=== PATIENT | male | born 1930 | race Caucasian/White ===

== ENCOUNTER → 2018-05-05 11:02 | Outpatient (CLI) | payer MEDICARE, OTHER ==
[~2018-05-05] VITALS: Ht 175.3 cm; Wt 76.4 kg
--- NOTE | ~2018-05-05 | HEMODYNAMI ---
PATIENT:CHARLIE BARNETT MEDICAL RECORD: [id number] : [birth year] LOCATION:[facility] ADMISSION DATE: 05/05/18 Generatedon:05/05/201813:49 Patient name: CHARLIE BARNETT Patient #: [id number] SSN: D OB: 1930 Date of study: 05/05/2018 Page: Of Hemodynamic Procedure Report Patient Data Patient Demographics Procedure consent was obtained First Name: CHARLIE Gender: Male Last Name: ANIBAL : 1930 Patient #: [id number] Age: 87 year(s) Race: Unknown Additional ID: [id number] Contact details Address: [address] [place] [address] State: [place] City: [facility] Zip code: [address] Admission Admission Data Admission Date: 05/05/2018 Admission Time: 11:02 Procedure Procedure Types Cath Procedure Peripheral Cath Diagnostic Procedure Thread Clipper Peripheral Procedures Toevs-Mtrnlny-Jpp-Off Procedure Description Procedure Date Procedure Date: 05/05/2018 Procedure Start Time: 13:35 Procedure End Time: 13:46 Procedure Staff Name Function Mike Mendoza MD Performing Physician Clementine Neri RT Monitor Sherley Napier RT Scrub Erna Cowan RN Nurse Procedure Data Cath Procedure Fluoroscopy Diagnostic fluoroscopy Total fluoroscopy Time: 1.2 time: 1.2 min min Diagnostic fluoroscopy Total fluoroscopy dose: 96 dose: 96 mGy mGy Contrast Material Contrast Material Type Amount (ml) Isovue 300 47 Entry Location Entry Primary Successful Side Size Upsize Upsize Entry Closure Succes sful Closure Location (Fr) 1 (Fr) 2 (Fr) Remarks Device Remarks Femoral Right 5 Fr Exoseal artery Estimated blood loss: 5 ml Diagnostic catheters Device Type Used For End Catheter Placement DIAGNOSTIC UF 5Fr Multi-vessel catheter ([id number]) Angiography Procedure Complications No complications Procedure Medications Medication Administration Route Dosage 0.9% NaCl I.V. 100 ml/hr Oxygen etCO2 Nasal cannula 2 l/min Lidocaine 2% added to field 20 Heparin Flush Bag added to field 2 bags (1000units/500ml NS) Versed I.V. 2 mg Fentanyl I.V. 50 mcg Versed I.V. 2 mg Hemodynamics Rest Heart Rate: 61 (bpm) Snapshots Pre Cath Intra NCS Post Cath Vital Signs Time Heart Resp SPO2 etCO2 NIBP (mmHg) Rhythm Pain Sedation Rate (ipm) (%) (mmHg) Status Level (bpm) 13:29:10 58 10 98 19.7 168/116(142) NSR 0 (11) 10(A) , No pain 13:33:49 60 16 97 26 173/73(129) NSR 0 (11) 10(A) , No pain 13:38:23 60 16 98 32 168/78(122) NSR 0 (11) 9(A) , No pain 13:42:54 60 14 98 18 157/76(118) NSR 0 (11) 9(A) , No pain 13:47:30 60 15 97 20.4 166/78(92) NSR 0 (11) 10(A) , No pain Medications Time Medication Route Dose Verified Delivered Reason Notes Eff ectiveness by by 13:22:48 0.9% NaCl I.V. 100 Mike Erna used for ml/hr Reji Cowan feedmobile driver 13:22:56 Oxygen etCO2 2 Mike Erna used for Nasal l/min Reji Cowan procedure cannula RN 13:23:01 Lidocaine 2% added 20ml Mike Mike for local to vial Reji Mendoza MD anesthetic field 13:23:07 Heparin Flush added 2 Mike Mike used for Bag to bags Reji Mendoza MD procedure (1000units/500ml field NS) 13:35:47 Versed I.V. 2 mg Mike Erna for Reji Cowan sedation RN 13:35:53 Fentanyl I.V. 50 Mike Erna for mcg Reji Cowan sedation RN 13:41:21 Versed I.V. 2 mg Mike Erna for Reji Cowan sedation claim taker Log Time Note 13:08:23 Informed consent obtained and on chart 13:08:38 Diagnostic Cath Status : Elective 13:09:08 Erna Cowan RN sent for patient. Start room use. 13:09:09 Time tracking: Regular hours (M-F 7:00 - 5:00) 13:09:13 Plan of Care:Hemodynamics will remain stable., Cardiac rhythm will remain stable., Comfort level will be maintained., Respiratory function will remain adequate., Patient/ family verbilizes understanding of procedure., Procedure tolerated without complication., Recovers from procedure without complications.. 13:15:27 Patient received from Pre/Post Procedure Room to CCL 1 Alert and oriented. Tansferred to table in Supine position. 13:15:28 Warm blankets applied, and noris hugger turned on for patient comfort. 13:15:29 Correct patient and procedure confirmed by team. 13:15:30 ECG and BP/O2 sat monitors applied to patient. 13:21:52 Vital chart was started 13:22:48 0.9% NaCl 100 ml/hr I.V. was administered by Erna Cowan RN; used for procedure; 13:22:56 Oxygen 2 l/min etCO2 Nasal cannula was administered by Erna Cowan RN; used for procedure; 13:23:01 Lidocaine 2% 20ml vial added to field was administered by Mike Mendoza MD; for local anesthetic; 13:23:07 Heparin Flush Bag (1000units/500ml NS) 2 bags added to field was administered by Mike Mendoza MD; used for procedure; 13:27:11 Baseline sample Acquired. 13:27:17 Rhythm: sinus rhythm 13:27:19 Full Disclosure recording started 13:27:23 H&P Date Dictated: 05/05/2018 Within 30 days and on chart., H&P Addendum completed by physician on day of procedure. (MUST COMPLETE FOR ALL OUTPATIENTS). 13:27:25 Pre-procedure instructions explained to patient. 13:27:26 Pre-op teaching completed and patient verbalized understanding. 13:27:27 Family in waiting room. 13:27:28 Patient NPO since Midnight. 13:27:31 Is the patient allergic to Iodine/contrast media? No. 13:27:32 Was the patient premedicated? No 13:27:34 Is patient on blood thinner?No 13:27:35 Patient diabetic? No. 13:27:40 Previous problem with sedation/anesthesia? No ? 13:27:43 Snore? No 13:27:44 Sleep apnea? No 13:27:45 Deviated septum? No 13:27:46 Opens mouth fully? Yes 13:27:47 Sticks out tongue? Yes 13:27:49 Airway obstruction? No ? 13:28:02 Dentures? Yes in tight 13:28:06 Pre procedure: right dorsailis pedis pulse 1+ Palpable, but thready & weak; easily obliterated 13:28:19 Pre procedure: left dorsailis pedis pulse 1+ Palpable, but thready & weak; easily obliterated 13:28:22 Patient pain scale 0/10 ?. 13:28:31 IV patent on arrival in left hand with 0.9% NaCl at [facility]. 13:28:33 Lab results completed and on chart. 13:28:40 Bilateral groins area was prepped with chlora-prep and draped in sterile fashion 13:28:41 Alarms reviewed by R. N. 13:28:41 Sharps counted by scrub and verified by R.N. 13:34:29 Physician arrived 13:34:29 --------ALL STOP TIME OUT------ 13:34:30 Final Timeout: patient, procedure, and site verified with staff and physician. All members of the team are in agreement. 13:34:32 Bilateral groins site verified by team. 13:34:35 Physical assessment completed. ASA score P 2 - A patient with mild systemic disease as per Mike Mendoza MD. 13:34:38 Sedation plan: IV Moderate Sedation Medication:Versed, Fentanyl 13:34:48 Use device set CATH PACK 13:34:50 ACIST Syringe (32411) opened to sterile field. 13:34:50 ACIST Hand Control (23770) opened to sterile field. 13:34:51 ACIST Manifold (82811) opened to sterile field. 13:34:51 Medline Cath Pack ([id number]) opened to sterile field. 13:34:52 Bag Decanter (2002) opened to sterile field. 13:34:52 DIAGNOSTIC WIRE .035 260cm J wire (152382) opened to sterile field. 13:35:01 SHEATH 5FR Shobonier (JQT224) opened to sterile field. 13:35:10 Procedure started. 13:35:13 Local anesthetic to right femoral artery with Lidocaine 2% by Mike Mendoza MD.INITIAL ACCESS ONLY 13:35:28 A 5 Fr sheath was inserted into the Right Femoral artery 13:35:47 Versed 2 mg I.V. was administered by Erna Cowan RN; for sedation; 13:35:53 Fentanyl 50 mcg I.V. was administered by Erna Cowan RN; for sedation; 13:36:35 A DIAGNOSTIC UF 5Fr catheter ([id number]) was advanced over the wire and used for Multi-vessel Angiography. 13:38:55 Abdominal angiogram w/ runoff was performed. 13:41:21 Versed 2 mg I.V. was administered by Erna Cowan RN; for sedation; 13:44:13 Catheter removed. 13:44:21 EXOSEAL 5Fr (EX500) opened to sterile field. 13:44:34 Sheath removed intact; hemostasis achieved with Exoseal to the Right Femoral artery. 13:44:36 Procedure ended.(Physican Out) 13:44:54 Fluoroscopy time 01.20 minutes. 13:45:06 Fluoroscopy dose: 96 mGy 13:45:06 Flurop Dose total: 96 13:45:40 Contrast amount:Isovue 300 47ml. 13:45:42 Sharps counted by scrub and verified by R.N. 13:45:44 Insertion/operative site no bleeding no hematoma. 13:45:53 Post-op/insertion site Right Femoral artery dressed using a 4 x 4 and Tegaderm. 13:45:56 Post procedure rhythm: unchanged. 13:45:59 Estimated blood loss: 5 ml 13:46:01 Post procedure instruction explained to patient.Patient verbalizes understanding. 13:46:01 Patient needs reinforcement of post procedure teaching. 13:46:08 Procedure and supply charges have been captured, reviewed, submitted and are correct. 13:46:12 Procedure Complication : No complications 13:46:15 Vital chart was stopped 13:46:16 See physician's report for complete and final results. 13:46:20 Report given to Pre/Post Procedure Room. 13:46:22 Patient transfered to Pre/Post Procedure Room with Stretcher. 13:46:25 Procedure ended. 13:46:25 Full Disclosure recording stopped 13:46:28 End room use (Document Last) Device Usage Item Name Manufacture Quantity Catalog Hospital Part Current Minimal L ot# / Number Charge Number Stock Stock Serial# Code ACIST Acist 1 [id number] 049136 592184 20 SoFits.Me (69948) Systems Inc ACIST Hand Acist 1 17016 235168 224658 248447 5 Control Medical (03260) Systems Inc ACIST Acist 1 28935 999550 771368 577913 5 Manifold Medical (57901) Systems Inc Medline Medline 1 [id number] 344721 13722 506881 5 Cath Pack ([id number]) Bag Microtek 1 2002S 770157 76325 200008 5 Decanter Medical Inc. (2001S) DIAGNOSTIC St Mor 1 424298 807863 398961 962127 30 WIRE .035 260cm J wire (962340) SHEATH 5FR Terumo 1 OGJ188 119450 865954 863553 5 Shobonier (YAV481) DIAGNOSTIC Cardinal 1 [id number] 190649 786046 467720 10 UF 5Fr Health catheter ([id number]) EXOSEAL 5Fr Cardinal 1 EX500 034681 242203 812714 10 (EX500) Health Signature Audit [place] Stage Time Signature Unsigned Intra-Procedure 05/05/2018 Clementine Neri 1:49:19 PM RT(R) Signatures Monitor : Clementine Neri RT Signature : Date : Time : [facility] [address] [place] [address]
[~2018-05-05 11:02] MED LIST: AGGRENOX 200/251 CAP PO; AXIRON30 MG/1.5 TP; BAYER CHEWABLE81 MG PO; BYSTOLIC10 MG PO; COZAAR100 MG PO; CYANOCOBALAMIN 1,000 IM; NORVASC5 MG PO; PLAVIX75 MG PO; VITAMIN B-121000 MCG IM
[2018-05-05 11:55] VITALS: BP 195/88; Ht 175.3 cm; Wt 76.4 kg
[2018-05-05 12:20] LABS: BASOPHILS 0.2 % (0-2); EOSINOPHILS 2.4 % (0-7); HEMATOCRIT 51.7 % (42.0-54.0); HEMOGLOBIN 17.7 g/dL (13.5-17.5); IMMATURE GRANULOCYTES 0.3 % (0-5); MCH 31.8 pg (26.0-34.0); MCHC 34.2 g/dL (31.0-37.0); MCV 92.8 fL (80.0-100.0); MEAN PLATELET VOLUME 10.3 fL (7.4-10.4); NEUTROPHILS 69.1 % (40-80); PLATELET COUNT 195 10x3/uL (130-400); RBC 5.57 10x6/uL (4.20-6.10); RDW 13.7 % (11.5-14.5); WBC 8.9 10x3/uL (4.8-10.8)
[2018-05-05 12:32] LABS: ANION GAP 12.4 mmol/L (8-16); CALCIUM 9.2 mg/dL (8.5-10.1); CARBON DIOXIDE 27.2 mmol/L (21.0-32.0); CREATININE - SERUM 2.3 mg/dL (0.6-1.3); POTASSIUM - SERUM 4.6 mmol/L (3.5-5.1)
--- NOTE | 2018-05-05 14:21 | NUR ---
CALLED [facility] TO TELL THEM THE PT WILL BE READY FOR [facility] [facility] AT 1600
--- NOTE | 2018-05-05 14:32 | NUR ---
PT. ALERT AND ORIENTED. VSS. DENIES PAIN. RIGHT GROIN C/D/I. NO BLEEDING. NO HEMATOMA. LEFT PIV C/D/I.
--- NOTE | 2018-05-05 15:00 | NUR ---
AWAKE AND ORIENTED. VSS. RIGHT GROIN C/D/I. NO CO PAIN. DENIES N/V.
--- NOTE | 2018-05-05 15:42 | NUR ---
SITTING PT UP. TOLERATING A SANDWICH. NO N/V. RIGHT GROIN C/D/I. VSS
--- NOTE | 2018-05-05 16:00 | NUR ---
REVIEWED DC INSTRUCTIONS WITH PT. QUESTIONS ANSWERED. RIGHT GROIN C/D/I. PIV REMOVED
--- NOTE | 2018-05-05 16:16 | NUR ---
PT. DISCHARGED IN TO CAB
== END | disposition home or self-care (01) ==
LOC: D.CATH 11:02
PROVIDERS: Internal Medicine Cardiovascular Disease
DX: I70.213 Atherosclerosis of native arteries of extremities with intermittent claudication, bilateral legs (principal)

== ENCOUNTER → 2018-05-06 09:46 | Outpatient (CLI) | payer MEDICARE, OTHER ==
[2018-05-05 11:55] VITALS: BMI 24.8
== END | disposition home or self-care (01) ==
LOC: D.US 09:46
DX: I12.9 Hypertensive chronic kidney disease with stage 1 through stage 4 chronic kidney disease, or unspecified chronic kidney disease (principal); N18.3 Chronic kidney disease, stage 3 (moderate); I70.90 Unspecified atherosclerosis; Z68.24 Body mass index [BMI] 24.0-24.9, adult

== ENCOUNTER → 2018-05-12 17:24 | Outpatient (CLI) | payer MEDICARE, OTHER ==
[2018-05-05 11:55] VITALS: BMI 24.8
[2018-05-12 18:55] LABS: ANION GAP 15.9 mmol/L (8-16); CALCIUM 8.9 mg/dL (8.5-10.1); CARBON DIOXIDE 26.2 mmol/L (21.0-32.0); CREATININE - SERUM 2.1 mg/dL (0.6-1.3); POTASSIUM - SERUM 5.1 mmol/L (3.5-5.1)
== END | disposition home or self-care (01) ==
LOC: D.LABREF 17:24
PROVIDERS: Nurse Practitioner Adult Health
DX: R74.8 Abnormal levels of other serum enzymes (principal)

== ENCOUNTER 2018-05-13 10:39 | Outpatient (CLI) | payer MEDICARE, OTHER ==
[~2018-05-13] VITALS: Ht 175.3 cm; Wt 76.4 kg
--- NOTE | ~2018-05-13 | HEMODYNAMI ---
PATIENT:CHARLIE BARNETT MEDICAL RECORD: [id number] : [birth year] LOCATION:[facility] ADMISSION DATE: 05/13/18 Generatedon:05/13/201815:48 Patient name: CHARLIE BARNETT Patient #: [id number] SSN: D OB: 1930 Date of study: 05/13/2018 Page: Of Hemodynamic Procedure Report Patient Data Patient Demographics Procedure consent was obtained First Name: CHARLIE Gender: Male Last Name: ANIBAL : 1930 Patient #: [id number] Age: 87 year(s) Race: Unknown Additional ID: [id number] Contact details Address: [address] [place] [address] State: [place] City: [facility] Zip code: [address] Past Medical History Allergies: No known allergies Admission Admission Data Admission Date: 05/13/2018 Admission Time: 10:39 Height (in.): 69 BSA: 1.94 (m2) Height (cm.): 175.26 BMI: 25.4 (kg/m2) Weight (lbs.): 172 Weight (kg.): 78.02 Lab Results Lab Result Date: 05/13/2018 Lab Result Time: 0:00 Biochemistry Name Units Result Min Max BUN mg/dl 31 --(----)-* 7 18 Creatinine mg/dl 2.2 --(----)-* 0.6 1.3 CBC Name Units Result Min Max Hemoglobin g/dl 17.5 --(---*)-- 13.5 17.5 Procedure Procedure Types Cath Procedure Diagnostic Procedure Sedation Charges Moderate Sedation up to 45 minutes Peripheral vascular Intervention Atherectomy Atherectomy Fem/Pop w/Plasty Stent Stent Iliac w/plasty Initial Procedure Description Procedure Date Procedure Date: 05/13/2018 Procedure Start Time: 14:29 Procedure End Time: 15:45 Procedure Staff Name Function Mike Mendoza MD Performing Physician Sherley Napier RT Monitor Wes Olivarez RT Scrub Erna Chapo RN Nurse Procedure Data Cath Procedure Fluoroscopy Diagnostic fluoroscopy Total fluoroscopy Time: time: 23.5 min 23.5 min Diagnostic fluoroscopy Total fluoroscopy dose: 373 dose: 373 mGy mGy Contrast Material Contrast Material Type Amount (ml) Isovue 300 76 Entry Location Entry Primary Successful Side Size Upsize Upsize Entry Closure Succes sful Closure Location (Fr) 1 (Fr) 2 (Fr) Remarks Device Remarks Femoral Left 6 Fr 6 Fr Exoseal artery Short Long Estimated blood loss: 10 ml Diagnostic catheters Device Type Used For End Catheter Placement DIAGNOSTIC IMT 5Fr Procedure Catheter ([id number]) Procedure Complications No complications Procedure Medications Medication Administration Route Dosage 0.9% NaCl I.V. 100 ml/hr Oxygen etCO2 Nasal cannula 2 l/min Lidocaine 2% added to field 20 Heparin Flush Bag added to field 2 bags (1000units/500ml NS) Versed I.V. 2 mg Fentanyl I.V. 50 mcg Versed I.V. 1 mg Fentanyl I.V. 25 mcg Heparin Bolus I.V. 7600 units Versed I.V. 1 mg Fentanyl I.V. 25 mcg Versed I.V. 1 mg Fentanyl I.V. 25 mcg Versed I.V. 1 mg Heparin Bolus I.V. 3000 units Plavix P.O. 600 mg Hemodynamics Rest BSA: 1.94 (m2) O2 Consumption: Estimated: 207.97 (ml/min) O2 Consumption indexed : Estimated:107.2 (ml/min/m) Heart Rate: 54 (bpm) Snapshots Pre Cath Intra NCS Post Cath Vital Signs Time Heart Resp SPO2 etCO2 NIBP (mmHg) Rhythm Pain Sedation Rate (ipm) (%) (mmHg) Status Level (bpm) 14:16:30 55 12 95 20.9 176/97(156) NSR 0 (11) 10(A) , No pain 14:20:53 54 16 100 24.6 189/85(161) NSR 0 (11) 10(A) , No pain 14:26:08 55 13 98 25 190/89(134) NSR 0 (11) 10(A) , No pain 14:30:34 53 17 97 25 176/81(153) NSR 0 (11) 10(A) , No pain 14:34:56 54 15 97 26 193/94(140) NSR 0 (11) 9(A) , No pain 14:39:29 53 14 97 24.6 155/77(125) NSR 0 (11) 9(A) , No pain 14:43:49 53 14 97 26.1 163/77(133) NSR 0 (11) 10(A) , No pain 14:48:58 52 13 97 27.6 167/79(129) NSR 0 (11) 9(A) , No pain 14:53:24 52 12 97 28.4 140/67(111) NSR 0 (11) 9(A) , No pain 14:58:32 52 13 97 27.6 141/68(102) NSR 0 (11) 9(A) , No pain 15:02:48 54 13 97 25.3 154/70(122) NSR 0 (11) 10(A) , No pain 15:07:08 53 14 97 29.1 142/72(112) NSR 0 (11) 9(A) , No pain 15:11:24 55 11 98 26.8 151/72(113) NSR 0 (11) 9(A) , No pain 15:15:44 56 11 98 29.1 153/72(118) NSR 0 (11) 9(A) , No pain 15:20:02 59 11 97 28.3 157/78(122) NSR 0 (11) 9(A) , No pain 15:24:22 57 11 98 29.1 159/77(127) NSR 0 (11) 10(A) , No pain 15:28:42 56 11 97 29.1 165/79(122) NSR 0 (11) 9(A) , No pain 15:33:06 56 12 98 25.4 164/76(125) NSR 0 (11) 9(A) , No pain 15:37:31 56 12 98 27.6 161/75(130) NSR 0 (11) 9(A) , No pain 15:41:53 57 12 98 27.6 159/77(130) NSR 0 (11) 10(A) , No pain 15:46:13 56 12 98 25.4 156/80(125) NSR 0 (11) 9(A) , No pain Medications Time Medication Route Dose Verified Delivered Reason Notes Effectiveness by by 14:15:41 0.9% NaCl I.V. 100 Mike Erna used for ml/hr Reji Cowan remote broadcast engineer 14:15:49 Oxygen etCO2 2 Mike Erna used for Nasal l/min Reji Cowan procedure cannula RN 14:15:55 Lidocaine 2% added 20ml Mike Mike for local to vial Reji Mendoza MD anesthetic field 14:15:59 Heparin Flush added 2 Mike Mike used for Bag to bags Reji Mendoza MD procedure (1000units/500ml field NS) 14:28:04 Versed I.V. 2 mg Mike Erna for sedation Reji Cowan RN 14:28:13 Fentanyl I.V. 50 Mike Erna for sedation mcg Reji Cowan RN 14:32:32 Versed I.V. 1 mg Mike Erna for sedation Reji Cowan RN 14:32:36 Fentanyl I.V. 25 Mike Erna for sedation mcg Reji Cowan RN 14:48:00 Heparin Bolus I.V. 7600 Mike Erna for verif ied units Reji Cowan anticoagulation with Dr. RENEE Mendoza 14:48:16 Versed I.V. 1 mg Mike Erna for sedation verif ied Reji Cowan with Dr. RENEE Mendoza 14:48:20 Fentanyl I.V. 25 Mike Erna for sedation verif ied mcg Reji Cowan with Dr. RENEE Mendoza 15:03:09 Versed I.V. 1 mg Mike Erna for sedation Reji Cowan RN 15:03:12 Fentanyl I.V. 25 Mike Erna for sedation mcg Reji Cowan RN 15:28:03 Versed I.V. 1 mg Mike Erna for sedation Reji Cowan RN 15:36:23 Heparin Bolus I.V. 3000 Mike Erna for Verif ied units Reji Cowan anticoagulation with dr RENEE mendoza 15:44:46 Plavix P.O. 600 Mike Erna for mg Reji Cowan antiplatelet RN therapy Procedure Log Time Note 13:50:42 Signed procedure consent form obtained from patient. 13:50:44 Diagnostic Cath status Elective 13:50:53 H&P Date Dictated: 05/12/2018 Within 30 days and on chart., H&P Addendum completed by physician on day of procedure. (MUST COMPLETE FOR ALL OUTPATIENTS). 13:51:01 Patient Height : 69 inches 13:51:05 Patient Weight : 172 lbs 13:52:14 Patient allergic to No known allergies 13:58:34 Lab Result : Creatinine 2.2 mg/dl 13:58:34 Lab Result : BUN 31 mg/dl 13:58:34 Lab Result : Hemoglobin 17.5 g/dl 13:59:02 Wes ALANIZ(R) sent for patient. Start room use. 13:59:03 Time tracking: Regular hours (M-F 7:00 - 5:00) 13:59:07 Plan of Care:Hemodynamics will remain stable., Cardiac rhythm will remain stable., Comfort level will be maintained., Respiratory function will remain adequate., Patient/ family verbilizes understanding of procedure., Procedure tolerated without complication., Recovers from procedure without complications.. 14:07:10 Patient received from Pre/Post Procedure Room to CCL 1 Alert and oriented. Tansferred to table in Supine position. 14:07:11 Warm blankets applied, and noris hugger turned on for patient comfort. 14:07:11 Correct patient and procedure confirmed by team. 14:07:12 ECG and BP/O2 sat monitors applied to patient. 14:15:18 Vital chart was started 14:15:41 0.9% NaCl 100 ml/hr I.V. was administered by Erna Cowan RN; used for procedure; 14:15:49 Oxygen 2 l/min etCO2 Nasal cannula was administered by Erna Cowan RN; used for procedure; 14:15:55 Lidocaine 2% 20ml vial added to field was administered by Mike Mendoza MD; for local anesthetic; 14:15:59 Heparin Flush Bag (1000units/500ml NS) 2 bags added to field was administered by Mike Mendoza MD; used for procedure; 14:17:37 Baseline sample Acquired. 14:17:42 Rhythm: sinus bradycardia 14:17:43 Full Disclosure recording started 14:17:44 Pre-procedure instructions explained to patient. 14:17:44 Pre-op teaching completed and patient verbalized understanding. 14:17:45 Family in patients room. 14:17:47 Patient NPO since Midnight. 14:17:52 Is patient on blood thinner?No 14:17:53 Patient diabetic? No. 14:17:56 Previous problem with sedation/anesthesia? No ? 14:17:56 Snore? Yes 14:17:57 Sleep apnea? No 14:17:59 Deviated septum? No 14:18:00 Opens mouth fully? Yes 14:18:01 Sticks out tongue? Yes 14:18:02 Airway obstruction? No ? 14:18:05 Dentures? Yes IN 14:18:12 Pre procedure: left dorsailis pedis pulse 1+ Palpable, but thready & weak; easily obliterated 14:18:28 Patient pain scale 0/10 ?. 14:19:03 IV patent on arrival in left hand with 0.9% NaCl at [facility]. 14:19:07 Lab results completed and on chart. 14:19:10 Left groin area was prepped with chlora-prep and draped in sterile fashion 14:19:11 Alarms reviewed by R. N. 14:19:11 Sharps counted by scrub and verified by R.N. 14:19:19 Use device set CATH PACK 14:19:20 ACIST Syringe (11157) opened to sterile field. 14:19:20 ACIST Hand Control (70025) opened to sterile field. 14:19:20 ACIST Manifold (91045) opened to sterile field. 14:19:21 Medline Cath Pack ([id number]) opened to sterile field. 14:19:21 Bag Decanter (2002S) opened to sterile field. 14:19:22 DIAGNOSTIC WIRE .035 260cm J wire (292022) opened to sterile field. 14:24:30 SHEATH 6FR Destination (RSR01) opened to sterile field. 14:24:31 GLIDE WIRE Super Stiff Angled 260cm (LR5158) opened to sterile field. 14:24:31 SHEATH 6FR [place] (GVF823) opened to sterile field. 14:24:32 INFLATOR Merit BasixCompak (PM1572) opened to sterile field. 14:27:26 --------ALL STOP TIME OUT------ 14:27:26 Final Timeout: patient, procedure, and site verified with staff and physician. All members of the team are in agreement. 14:27:28 Left groin site verified by team. 14:27:31 Physical assessment completed. ASA score P 2 - A patient with mild systemic disease as per Mike Mendoza MD. 14::34 Sedation plan: IV Moderate Sedation Medication:Versed, Fentanyl 14:28:04 Versed 2 mg I.V. was administered by Erna Cowan RN; for sedation; 14:28:13 Fentanyl 50 mcg I.V. was administered by Erna Cowan RN; for sedation; 14:29:22 Procedure started. 14:29:54 Local anesthetic to left femerol artery with Lidocaine 2% by Mike Mendoza MD.INITIAL ACCESS ONLY 14:32:32 Versed 1 mg I.V. was administered by Erna Cowan RN; for sedation; 14:32:36 Fentanyl 25 mcg I.V. was administered by Erna Cowan RN; for sedation; 14:33:20 A 6 Fr Short sheath was inserted into the Left Femoral artery 14:33:49 A DIAGNOSTIC IMT 5Fr Catheter ([id number]) was advanced over the wire and used for Procedure. 14:34:29 STIFF GLIDE ADVANCED WITH IMT AROUND THE HORN 14:36:31 MAGIC TORQUE 180cm 0.035 wire ([id number]) opened to sterile field. 14:39:26 Catheter exchanged over wire. 14:39:41 SHORT SHEATH EXCHANGED FOR LONG DESTINATION 14:39:50 Sheath upsized to a 6 Fr Long. 14:41:24 GLIDE WIRE REMOVED 14:44:53 WHISPER 300cm guide wire ([id number]) opened to sterile field. 14:46:46 WHIPSER 300 wire advanced. 14:46:47 Wire advanced across lesion. 14:48:00 Heparin Bolus 7600 units I.V. was administered by Erna Cowan RN; for anticoagulation; verified with Dr. Mendoza 14:48:16 Versed 1 mg I.V. was administered by Erna Cowan RN; for sedation; verified with Dr. Mendoza 14:48:20 Fentanyl 25 mcg I.V. was administered by Erna Cowan RN; for sedation; verified with Dr. Mendoza 14:49:26 DIAMONDBACK VIPER .014 335 CM wire ([id number]) opened to sterile field. 14:49:57 BALLOON ADVANCED TO EXCHANGE WHISPER WIRE FOR VIPER WIRE 14:52:12 The SABER 5.0 X 150 X 150 balloon ([id number]) was advanced and then removed because in body, not inflated 14:55:43 DIAMONDBACK 360 1.50 SOLID Atherectomy catheter ([id number]) opened to sterile field. 14:59:13 Diamondback atherectomy performed on Right Common Femoral and SFA 15:03:09 Versed 1 mg I.V. was administered by Erna Cowan RN; for sedation; 15:03:12 Fentanyl 25 mcg I.V. was administered by Erna Cowan RN; for sedation; 15:19:05 Diamondback catheter removed. 15:22:58 Inflate balloon Inflation number: 1 A SABER 5.0 X 150 X 150 balloon ([id number]) was prepped and advanced across the Proximal Superficial Femoral, Right, then inflated to 7 ESTRELLA for 1:07 (min:sec). 15:25:29 Inflation number: 2 The SABER 5.0 X 150 X 150 balloon ([id number]) was reinflated across the Proximal Superficial Femoral, Right, to 7 ESTRELLA for 0:43 (min:sec). 15:27:34 Inflation number: 3 The SABER 5.0 X 150 X 150 balloon ([id number]) was reinflated across the Proximal Superficial Femoral, Right, to 8 ESTRELLA for 0:37 (min:sec). 15:28:03 Versed 1 mg I.V. was administered by Erna Cowan RN; for sedation; 15:28:09 Balloon removed over the wire. 15:31:10 VIPER WIRE REMOVED 15:31:48 JWIRE ADVNACED TO PULL LONG SHEATH BACK AROUND HORN 15:36:23 Heparin Bolus 3000 units I.V. was administered by Erna Cowan RN; for anticoagulation; Verified with dr mendoza 15:37:56 Place stent Inflation Number: 1 A TUCKER 8 x 39 x 135 stent ([id number]) was prepped and advanced across the Mid Common Iliac, Left. The stent was deployed at 10 ESTRELLA for 0:00 (min:sec). 15:39:21 Stent catheter was removed intact over wire. 15:39:45 LONG SHEATH EXCHANGED FOR SHORT SHEATH 15:40:13 EXOSEAL 6Fr (EX600) opened to sterile field. 15:41:02 Sheath removed intact; hemostasis achieved with Exoseal to the Left Femoral artery. 15:41:06 Procedure ended.(Physican Out) 15:42:08 Fluoroscopy time 23.50 minutes. 15:42:13 Flurop Dose total: 373 15:42:13 Fluoroscopy dose: 373 mGy 15:42:29 Contrast amount:Isovue 300 76ml. 15:42:35 Post-op/insertion site Left Femoral artery dressed using a 4 x 4 and Tegaderm. 15:42:42 Post-procedure physical assessment completed. ASA score P 2 - A patient with mild systemic disease as per Mike Mendoza MD. 15:42:45 Post procedure rhythm: sinus bradycardia 15:42:47 Estimated blood loss: 10 ml 15:42:49 Post procedure instruction explained to patient.Patient verbalizes understanding. 15:42:49 Patient needs reinforcement of post procedure teaching. 15:44:38 Procedure type changed to Cath procedure, Diagnostic procedure, Sedation Charges, Moderate Sedation up to 45 minutes, Peripheral vascular Intervention, Atherectomy, Atherectomy Fem/Pop w/Plasty, Stent, Stent Iliac w/plasty Initial 15:44:46 Plavix 600 mg P.O. was administered by Erna Cowan RN; for antiplatelet therapy; 15:45:18 Procedure and supply charges have been captured, reviewed, submitted and are correct. 15:45:31 Procedure Complication : No complications 15:45:32 Vital chart was stopped 15:45:32 See physician's report for complete and final results. 15:45:34 Report given to Pre/Post Procedure Room. 15:45:36 Patient transfered to Pre/Post Procedure Room with Bed. 15:45:39 Procedure ended. 15:45:39 Full Disclosure recording stopped 15:45:42 End room use (Document Last) Intervention Summary Intervention Notes Time ActionType Lesion and Equipment Action# Pressure Duration Attributes Used 14:52:12 Discard SABER 5.0 X Balloon 150 X 150 balloon ([id number]) 15:22:58 Inflate Proximal SABER 5.0 X 1 7 01:07 balloon Superficial 150 X 150 Femoral, balloon Right ([id number]) 15:25:29 Reinflate Proximal SABER 5.0 X 2 7 00:43 balloon Superficial 150 X 150 Femoral, balloon Right ([id number]) 15:27:34 Reinflate Proximal SABER 5.0 X 3 8 00:37 balloon Superficial 150 X 150 Femoral, balloon Right ([id number]) 15:37:56 Place stent Mid Common TUCKER 8 x 1 10 00:00 Iliac, Left 39 x 135 stent ([id number]) Device Usage Item Name Manufacture Quantity Catalog Number Hospital Part Curr ent Minimal Lot# / Charge Number Stock Stock Serial# Code ACIST Syringe Acist Medical 1 40569 082585 754711 7218 65 20 (71248) Systems Inc ACIST Hand Acist Medical 1 68639 947082 695268 4999 90 5 Control (98549) Systems Inc ACIST Manifold Acist Medical 1 24425 308741 238238 4963 07 5 (66142) Systems Inc Medline Cath Medline 1 [id number] 919964 97540 9896 49 5 Pack ([id number]) Bag Decanter Microtek 1 2001S 942591 16980 9880 53 5 () Medical Inc. DIAGNOSTIC WIRE [facility] 1 653209 066174 454701 8790 42 30 .035 260cm J wire (958522) SHEATH 6FR Terumo 1 RSR01 618778 33755 9996 90 5 Destination (RSR01) GLIDE WIRE Super Terumo 1 GU1877 579191 537766 3752 81 5 Stiff Angled 260cm (UR5933) SHEATH 6FR Terumo 1 IIU277 929545 166209 3791 36 40 [place] (OHM847) INFLATOR [facility] Medical 1 DP5639 991174 717651 4399 08 15 BasixCompak (FC3042) DIAGNOSTIC IMT [place] 1 [id number] 248911 689437 4616 5 5 5Fr Catheter Scientific ([id number]) MAGIC TORQUE [place] 1 [id number] 965246 843742 9940 73 1 180cm 0.035 wire Scientific ([id number]) WHISPER 300cm Petty 1 [id number] 857639 034712 4865 93 5 guide wire Vascular ([id number]) DIAMONDBACK Cardiovascular 1 VPR-[id number] 086781 9988 23 5 VIPER .014 335 systems CM wire (FLHJVHG41) SABER 5.0 X 150 Cardinal 1 [id number] 700047 4103 93 5 X 150 balloon Health ([id number]) DIAMONDBACK 360 Cardiovascular 1 [id number] 302003 1231 93 5 1.50 SOLID systems Atherectomy catheter ([id number]) TUCKER 8 x 39 x Cardinal 1 [id number] 551698 989006 7030 91 5 135 stent Health ([id number]) EXOSEAL 6Fr Cardinal 1 EX600 930787 805203 3624 36 10 (EX600) Health Signature Audit [place] Stage Time Signature Unsigned Intra-Procedure 05/13/2018 Sherley Napier 3:48:22 PM RT(R) Signatures Monitor : Sherley Napier Signature : RT Date : Time : [address] [address]
[~2018-05-13 10:39] MED LIST changes: -BAYER CHEWABLE81 MG PO; -CYANOCOBALAMIN 1,000 IM; -NORVASC5 MG PO; -PLAVIX75 MG PO
[2018-05-13] MEDS ORDERED: NORVASC5 MG PO (11:57)
[2018-05-13] MEDS ORDERED: CYANOCOBALAMIN 1,000 IM (12:00)
[2018-05-13 12:13] VITALS: BP 193/92; Ht 175.3 cm; Wt 76.4 kg
[2018-05-13 12:31] LABS: ANION GAP 13.5 mmol/L (8-16); CALCIUM 8.7 mg/dL (8.5-10.1); CARBON DIOXIDE 25.8 mmol/L (21.0-32.0); CREATININE - SERUM 2.2 mg/dL (0.6-1.3)
[2018-05-13 12:32] LABS: BASOPHILS 0.2 % (0-2); EOSINOPHILS 3.3 % (0-7); HEMATOCRIT 50.3 % (42.0-54.0); HEMOGLOBIN 17.5 g/dL (13.5-17.5); IMMATURE GRANULOCYTES 0.2 % (0-5); LYMPHOCYTES 16.5 % (15-50); MCHC 34.8 g/dL (31.0-37.0); MEAN PLATELET VOLUME 9.9 fL (7.4-10.4); MONOCYTES 13.1 % (2-11); NEUTROPHILS 66.7 % (40-80); PLATELET COUNT 183 10x3/uL (130-400); POTASSIUM - SERUM 4.3 mmol/L (3.5-5.1); RBC 5.47 10x6/uL (4.20-6.10); RDW 13.7 % (11.5-14.5); WBC 8.1 10x3/uL (4.8-10.8)
--- NOTE | 2018-05-13 13:41 | NUR ---
PATIENT NIBP 198/81 ON ARRIVAL, HAD PATIENT TAKE HIS HOME MEDICATION OF 5MG AMLODIPINE WHEN HE STATED THAT HE HAD NOT TAKEN IT THIS MORNING. BLOOD PRESSURE RE-CHECKED AT 204/77. SPOKE WITH PHYSICIAN, RECEIVED ORDER FOR 0.1 MG OF CLONIDINE PO ONCE.
--- NOTE | 2018-05-13 16:10 | NUR ---
RECIEVED TO ROOM VIA STRETCHER FROM MILK RECEIVER WITH 6 FR EXOSEAL L/GROIN CDI NO BLEEDING OR HEMATOMA NOTED. HR 54 BP 196/84. DR PRUITT AT BEDSIDE WITH ORDERS FOR 0.1 OF CLONIDINE PO ORDERS CARRIED OUT
[2018-05-13] MEDS ORDERED: BAYER CHEWABLE81 MG PO (16:14)
[2018-05-13] MEDS ORDERED: PLAVIX75 MG PO (16:14)
--- NOTE | 2018-05-13 16:21 | NUR ---
0.1 MG CLONIDINE GIVEN ORAL WITH WATER FOR ELEVATED BP. 6 FR EXOSEAL L/GROIN REMAINS CDI WITH NO BLEEDING OR HEMATOMA NOTED.
--- NOTE | 2018-05-13 16:45 | NUR ---
RESTING QUIETLY WITH NO DISTRESS. 6 FR EXOSEAL L/GROIN CDI
--- NOTE | 2018-05-13 17:20 | NUR ---
6 FR EXOSEAL L/GROIN CDI NO BLEEDING OR HEMATOMA NOTED. FAMILY PRESENT AT BEDSIDE
--- NOTE | 2018-05-13 17:43 | NUR ---
VERBAL AND WRITTEN DISCHARGE GONE OVER WITH PATIENT AND SON. 6 FR EXOSEAL L/GROIN REMAINS CDI WITH NO BLEEDING NOTED
--- NOTE | 2018-05-13 18:15 | NUR ---
RIGHT GROIN DRESSING IS CDI, NO S/S OF BLEEDING OR HEMATOMA. VSS ON 1L NASAL CANNULA.
--- NOTE | 2018-05-13 18:45 | NUR ---
HEAD OF BED ELEVATED TO 30 DEGREES. LEFT GROIN DRESSING IS CDI,NO S/S OF BLEEDING OR HEMATOMA. VSS ON ROOM AIR. PATIENT EATING TURKEY SANDWICH AND DRINKING WATER.
--- NOTE | 2018-05-13 19:15 | NUR ---
VSS ON ROOM AIR. LEFT GROIN DRESSING IS CDI, NO S/S OF BLEEDING OR HEMATOMA. HEAD OF BED ELEVATED TO 90 DEGREES. IV REMOVED.
--- NOTE | 2018-05-13 19:40 | NUR ---
PATIENT TRANSPORTED VIA WHEELCHAIR TO CAR WITH FAMILY MEMBER DRIVING, ALL BELONGINGS WITH PATIENT.
== END 2018-05-13 19:40 ==
LOC: D.CATH 10:39
PROVIDERS: Internal Medicine Cardiovascular Disease
DX: I70.213 Atherosclerosis of native arteries of extremities with intermittent claudication, bilateral legs (principal)

== ENCOUNTER 2018-07-22 06:40 | Day surgery (SDC) | payer MEDICARE, OTHER ==
[2018-07-21 12:24] LABS: ANION GAP 11.7 mmol/L (8-16); BASOPHILS 0.3 % (0-2); CARBON DIOXIDE 30.3 mmol/L (21.0-32.0); CREATININE - SERUM 2.3 mg/dL (0.6-1.3); EOSINOPHILS 3.2 % (0-7); HEMATOCRIT 50.9 % (42.0-54.0); HEMOGLOBIN 17.6 g/dL (13.5-17.5); IMMATURE GRANULOCYTES 0.3 % (0-5); LYMPHOCYTES 18.8 % (15-50); MCH 31.2 pg (26.0-34.0); MCHC 34.6 g/dL (31.0-37.0); MCV 90.1 fL (80.0-100.0); MEAN PLATELET VOLUME 9.6 fL (7.4-10.4); MONOCYTES 12.5 % (2-11); NEUTROPHILS 64.9 % (40-80); PLATELET COUNT 183 10x3/uL (130-400); RBC 5.65 10x6/uL (4.20-6.10); RDW 13.4 % (11.5-14.5); WBC 9.1 10x3/uL (4.8-10.8)
[2018-07-21 12:38] LABS: APTT 26.6 SECONDS (22.8-39.4); INR 1.03 (0.85-1.17)
[~2018-07-22] VITALS: Ht 175.3 cm; Wt 73.6 kg
[~2018-07-22 06:40] MED LIST changes: +BAYER CHEWABLE81 MG PO; +CYANOCOBALAMIN 1,000 IM; +CYANOCOBALAMIN 1,000 INJ; +HCTZ25 MG PO; +NORVASC5 MG PO; +PLAVIX75 MG PO
[2018-07-22 06:51] VITALS: BP 165/81; Ht 175.3 cm; Wt 73.6 kg
--- NOTE | 2018-07-22 12:47 | OP ---
PATIENT NAME: CHARLIE BARNETT JR MEDICAL RECORD: [id number] :[birth year] LOCATION:[facility] ADMISSION DATE: SURGEON: DAMIAN MORRISON MD DATE OF OPERATION: 07/22/2018 SURGEON: Damian Morrison MD ANESTHESIA: TIVA by Gwyn Martinez CRNA. DIAGNOSIS: Bladder neck contracture, post TURP of the prostate. PROCEDURES: Cystoscopy, incision of bladder neck. FINDINGS: Resected prostate. Bladder neck contracture with less than 17-Ivorian circumference. No bladder tumors were seen and he has single ureteral orifices bilaterally. SPECIMENS: None. BLOOD LOSS: Minimal. CLINICAL HISTORY: This is an 87-year-old male, who has had episodes of urinary retention over the past 2 years. He performs self intermittent catheterization every 5 days to open up a stricture. He had a TURP 5 years ago in [place], [place]. His urologist there recommended that he perform this every-5-day urethral and bladder neck dilation. He comes today to determine what the site of the obstruction is and then try to relieve it. He is not allergic to any medications. 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 DESCRIPTION OF PROCEDURE: The patient was given IV sedation. We first did cystoscopy with a 17-Ivorian cystoscope and a 30-degree lens. He was in lithotomy position and prepped and draped. Going into the urethra, there were no strictures. Prostatic urethra shows signs of previous resection. The bladder neck though was quite tight and in fact the scope could not pass through the bladder neck at all. I passed a Sensor wire through the bladder neck into the bladder. We then returned with an optic urethrotome with a 12-degree lens. Using the cold knife at 12 o'clock position, I made a deep enough incision that the scope would finally pass through. Further incisions were made at the 5 o'clock and 7 o'clock areas of the bladder neck so that the bladder neck was opened up in 3 locations. The optic urethrotome was then removed. We then placed a 16-Ivorian oneida-tip catheter over the guidewire into the bladder. Once the catheter was in the bladder, the balloon was inflated with 10 cc of sterile water. The guidewire was then completely removed. The catheter is put to bag drainage. The catheter will allow the bladder neck to heal up to at least the diameter of the catheter. I will see the patient in followup next week to have the catheter removed. TRANSINT:[id number] Voice Confirmation ID: [id number] DOCUMENT ID: [id number] OPERATIVE REPORT [id number] CHARLIE BARNETT JR, DAMIAN Still MD at 1247 CC: [id number] DICTATION DATE: 07/22/18 1203 MECHANIC AND WELDER: 07/22/18 1228 [id number] [place] [address]
--- NOTE | 2018-07-22 14:43 | NUR ---
1415 DRESSED, AWAKE, & ALERT. GIVEN DISCHARGE INFORMATION INCLUDING: RX"S 2: TYLENOL #3, OXYBUTYNIN, MED REC, RTC APPT., [facility] D/C INSTRUCTIONS, & COMPUTER GENERATED GENAO CARE, URETHROTOMY, & CYSTOSCOPY D/C INSTRUCTIONS. PT & SON VOICED UNDERSTANDING. TO PRIVATE CAR PER WHEELCHAIR BY THIS NURSE. HOME WITH SON, BRUCE. Renee BHANDARI R.N.
== END 2018-07-22 14:15 | disposition home or self-care (01) ==
LOC: D.OPS 06:40 → D.PAN 09:15 → D.OPS 09:30 → D.PAN 10:15 → D.OPS 10:15
PROVIDERS: Anesthesiology; ATTEND Urology
DX: N32.0 Bladder-neck obstruction (principal); R33.9 Retention of urine, unspecified; Z01.812 Encounter for preprocedural laboratory examination

== ENCOUNTER 2018-08-03 14:25 | Inpatient (IN) | payer MEDICARE, OTHER ==
[~2018-08-03] VITALS: Ht 175.3 cm; Wt 73.5 kg
[2018-08-03 15:37] LABS: BASOPHILS 0.2 % (0-2); EOSINOPHILS 0 % (0-7); HEMATOCRIT 44.7 % (42.0-54.0); HEMOGLOBIN 15.4 g/dL (13.5-17.5); IMMATURE GRANULOCYTES 0.2 % (0-5); LYMPHOCYTES 5.2 % (15-50); MCH 30.2 pg (26.0-34.0); MCHC 34.5 g/dL (31.0-37.0); MCV 87.6 fL (80.0-100.0); MEAN PLATELET VOLUME 9.8 fL (7.4-10.4); MONOCYTES 15.6 % (2-11); NEUTROPHILS 78.8 % (40-80); PLATELET COUNT 164 10x3/uL (130-400); RDW 13.9 % (11.5-14.5)
[2018-08-03 15:55] LABS: ALBUMIN 2.8 g/dL (3.4-5.0); ANION GAP 10.7 mmol/L (8-16); BILIRUBIN - TOTAL 2.05 mg/dL (0.2-1.3); CALCIUM 8.6 mg/dL (8.5-10.1); CARBON DIOXIDE 29.4 mmol/L (21.0-32.0); CREATININE - SERUM 2.8 mg/dL (0.6-1.3); POTASSIUM - SERUM 3.1 mmol/L (3.5-5.1); PROTEIN - SERUM 7.3 g/dL (6.4-8.2)
[2018-08-03 16:00] VITALS: BP 154/74
[2018-08-03 17:00] VITALS: BP 169/76
[2018-08-03 17:33] LABS: APPEARANCE HAZY (CLEAR); BILIRUBIN NEGATIVE (NEGATIVE); COLOR YELLOW (YELLOW); GLUCOSE NEGATIVE (NEGATIVE); KETONE NEGATIVE (NEGATIVE); NITRITE POSITIVE (NEGATIVE); PROTEIN 1+ mg/dL (NEGATIVE); SPECIFIC GRAVITY 1.015 (1.005-1.020); UROBILINOGEN NORMAL (NORMAL)
[2018-08-03 17:35] LABS: BACTERIA MANY /hpf (NONE SEEN); RED CELLS - URINE >50 /hpf (0-5); WHITE CELLS - URINE 25-50 /hpf (0-5)
[2018-08-03 18:00] VITALS: BP 167/78
[2018-08-03] MEDS ORDERED: CENTRUM MEN'S1 EACH PO (21:57)
[2018-08-03 22:27] VITALS: BP 137/64; BMI 23.9
[2018-08-04 00:45] VITALS: BP 140/75
[2018-08-04 04:28] VITALS: BP 131/56
[2018-08-04 06:32] LABS: ANION GAP 12.9 mmol/L (8-16); BASOPHILS 0.1 % (0-2); CALCIUM 7.5 mg/dL (8.5-10.1); CARBON DIOXIDE 25.7 mmol/L (21.0-32.0); CREATININE - SERUM 2.2 mg/dL (0.6-1.3); EOSINOPHILS 0.3 % (0-7); HEMATOCRIT 41.5 % (42.0-54.0); HEMOGLOBIN 14.5 g/dL (13.5-17.5); IMMATURE GRANULOCYTES 0.2 % (0-5); LYMPHOCYTES 10.6 % (15-50); MAGNESIUM - SERUM 1.9 mg/dL (1.8-2.4); MCH 30.1 pg (26.0-34.0); MCHC 34.9 g/dL (31.0-37.0); MCV 86.1 fL (80.0-100.0); MEAN PLATELET VOLUME 10.1 fL (7.4-10.4); MONOCYTES 19.6 % (2-11); NEUTROPHILS 69.2 % (40-80); PLATELET COUNT 148 10x3/uL (130-400); RBC 4.82 10x6/uL (4.20-6.10); RDW 14.1 % (11.5-14.5)
[2018-08-04 06:50] LABS: POTASSIUM - SERUM 2.6 mmol/L (3.5-5.1)
[2018-08-04 06:51] LABS: WBC 9.7 10x3/uL (4.8-10.8)
[2018-08-04 09:01] VITALS: BP 146/77
[2018-08-04 12:57] VITALS: BP 112/66
[2018-08-04 15:00] VITALS: Ht 175.3 cm; Wt 73.5 kg
[2018-08-04 16:38] VITALS: BP 139/63
[2018-08-04 20:00] VITALS: BP 168/99
[2018-08-05 04:00] VITALS: BP 122/61
[2018-08-05 05:41] LABS: BASOPHILS 0.1 % (0-2); HEMATOCRIT 39.6 % (42.0-54.0); HEMOGLOBIN 13.5 g/dL (13.5-17.5); IMMATURE GRANULOCYTES 0.4 % (0-5); MCH 29.7 pg (26.0-34.0); MCHC 34.1 g/dL (31.0-37.0); MCV 87.2 fL (80.0-100.0); MEAN PLATELET VOLUME 10.2 fL (7.4-10.4); MONOCYTES 14.1 % (2-11); NEUTROPHILS 66.4 % (40-80); PLATELET COUNT 157 10x3/uL (130-400); RBC 4.54 10x6/uL (4.20-6.10); RDW 14.3 % (11.5-14.5)
[2018-08-05 05:58] LABS: BILIRUBIN - TOTAL 0.59 mg/dL (0.2-1.3); CALCIUM 7.5 mg/dL (8.5-10.1); CARBON DIOXIDE 25.7 mmol/L (21.0-32.0); CREATININE - SERUM 2.1 mg/dL (0.6-1.3)
[2018-08-05 06:02] LABS: ANION GAP 10.3 mmol/L (8-16); PROTEIN - SERUM 5.4 g/dL (6.4-8.2)
[2018-08-05 06:07] LABS: WBC 6.9 10x3/uL (4.8-10.8)
[2018-08-05 09:34] VITALS: BP 146/67
[2018-08-05 13:38] VITALS: BP 149/90
--- NOTE | 2018-08-05 14:11 | MORECARE ---
CASE MANAGEMENT DISCHARGE SUMMARY PATIENT: CHARLIE MENDOZA JR UNIT: [id number] ADM DATE: 08/03/18 AGE: 87 : [birth year] SEX: M ROOM/BED: D.2234 AUTHOR: AIDEN MCCANN PHYSICIAN: REFERRING PHYSICIAN: CONCHITA CANO MD DATE OF SERVICE: 08/05/18 Discharge Plan Patient Name: CHARLIE [facility]END[facility]ZA [facility] [facility] 1930 Planned Disposition: Other Type of Facility Anticipated Discharge Date: Discharge Date: Expected LOS: Initial Reviewer: [email or web address] Initial Review Date: 08/05/2018 Generated: 08/05/18 3:10 pm DCPIA - Discharge Planning Initial Assessment Updated by [email or web address]: Jen Campbell on 08/05/18 2:10 pm * Is the patient Alert and Oriented? Yes * How many steps to enter\exit or inside your home? 0/0 * PCP Dr. Bryant * Pharmacy [facility] * Preadmission Environment [facility] * Facility Name [facility] * ADLs Independent * Equipment Catheter Supplies * List name and contact numbers for known caregivers / representatives who currently or will assist patient after discharge: Saman Mendoza - [facility] - [phone] * Verbal permission to speak to the caregivers and representatives has been obtained from the patient. Yes * Community resources currently utilized None * Additional services required to return to the preadmission environment? No * Can the patient safely return to the preadmission environment? Yes * Has this patient been hospitalized within the prior 30 days at any hospital? No Patient Name: CHARLIE MENDOZA Page [phone] at 1411 All edits/amendments must be made on the electronic document DICTATION DATE: 08/05/181409 AVIAN KEEPER: CLAIRE 08/05/181409 RPT#: [id number] DC DATE: STATUS: ADM IN [facility] [address] [place] [address] END OF REPORT
--- NOTE | 2018-08-05 14:19 | MORECARE ---
CASE MANAGEMENT DISCHARGE SUMMARY PATIENT: CHARLIE MENDOZA JR UNIT: [id number] ADM DATE: 08/03/18 AGE: 87 : [birth year] SEX: M ROOM/BED: D.2234 AUTHOR: RAMYDOC PHYSICIAN: REFERRING PHYSICIAN: CONCHIAT CANO MD DATE OF SERVICE: 08/05/18 Discharge Plan Patient Name: CHARLIE MENDOZA Facility: [facility]:[place] : 1930 Planned Disposition: Other Type of Facility Anticipated Discharge Date: Discharge Date: Expected LOS: Initial Reviewer: [email or web address] Initial Review Date: 08/05/2018 Generated: 08/05/18 3:19 pm Comments DCP- Discharge Planning Updated by [email or web address]: Jen Campbell on 08/05/18 1:[address] Patient Name: CHARLIE MENDOZA Admission Status: ER Accout number: [id number] Admission Date: 08-03-2018 : 1930 Admission Diagnosis: Attending: CONCHITA CNAO Current LOS: 2 Anticipated DC Date: Planned Disposition: Other Type of Facility Primary Insurance: MEDICARE A & B Discharge Planning Comments: CM met with patient to complete initial dc planning assessment. CM educated patient on the CM role and verbal consent given by patient to complete assessment. Patient lives at [facility] alone. At discharge patient plans to return and feels this is a safe discharge. He states the [facility] van will pick him up. He states he is independent and walks a quarter of a mile a day. States he does not use a walker, but has one available if needed and the person that picks him up is bringing a walker with them. CM discussed availability of home health, rehab services, and medical equipment. Patient denied known discharge needs at this time. He states he has catheter supplies at home. 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 He states he no longer drives, but the van takes him to his doctor appointments and anywhere he needs to go. He refuses a rehab or home health for strengthening. He CM will continue to follow and will assist as needed with dc plans/needs. Trade Marker: Jen Campbell DCPIA - Discharge Planning Initial Assessment Updated by [email or web address]: Jen Campbell on 08/05/18 2:10 pm * Is the patient Alert and Oriented? Yes * How many steps to enter\exit or inside your home? 0/0 * PCP Dr. Braynt * Pharmacy [facility] * Preadmission Environment Independent [facility] Apartment * Facility Name [facility] * ADLs Independent * Equipment Catheter Supplies * List name and contact numbers for known caregivers / representatives who currently or will assist patient after discharge: Saman Mendoza - son - [phone] * Verbal permission to speak to the caregivers and representatives has been obtained from the patient. Yes * Community resources currently utilized None * Additional services required to return to the preadmission environment? No * Can the patient safely return to the preadmission environment? Yes * Has this patient been hospitalized within the prior 30 days at any hospital? No Last DP export: 08/05/18 1:10 p Patient Name: CHARLIE MENDOZA Page [id number] at 1419 All edits/amendments must be made on the electronic document DICTATION DATE: 08/05/181418 HOT WIRE GLASS TUBE CUTTER: CLAIRE 08/05/181418 RPT#: [id number] DC DATE: STATUS: ADM IN [facility] [address] [place] [address] END OF REPORT
[2018-08-05 18:14] VITALS: BP 172/68
[2018-08-05 20:00] VITALS: BP 152/84
[2018-08-06 04:00] VITALS: BP 177/64
[2018-08-06 06:49] LABS: BASOPHILS 0.3 % (0-2); EOSINOPHILS 3.5 % (0-7); HEMATOCRIT 42.6 % (42.0-54.0); HEMOGLOBIN 14.5 g/dL (13.5-17.5); IMMATURE GRANULOCYTES 0.3 % (0-5); MCH 29.7 pg (26.0-34.0); MCV 87.3 fL (80.0-100.0); MEAN PLATELET VOLUME 10.1 fL (7.4-10.4); MONOCYTES 15.7 % (2-11); NEUTROPHILS 63.2 % (40-80); PLATELET COUNT 170 10x3/uL (130-400); RBC 4.88 10x6/uL (4.20-6.10); RDW 14.4 % (11.5-14.5); WBC 7.2 10x3/uL (4.8-10.8)
[2018-08-06 07:15] LABS: ALBUMIN 2.3 g/dL (3.4-5.0); ANION GAP 11.4 mmol/L (8-16); BILIRUBIN - TOTAL 0.92 mg/dL (0.2-1.3); CARBON DIOXIDE 25.8 mmol/L (21.0-32.0); CREATININE - SERUM 1.8 mg/dL (0.6-1.3); PROTEIN - SERUM 6.3 g/dL (6.4-8.2)
[2018-08-06 07:19] LABS: POTASSIUM - SERUM 3.2 mmol/L (3.5-5.1)
[2018-08-06] MEDS ORDERED: CIPRO250 MG PO (09:07)
[2018-08-06 09:37] VITALS: BP 112/75
--- NOTE | 2018-08-06 12:10 | MORECARE ---
CASE MANAGEMENT DISCHARGE SUMMARY PATIENT: CHARLIE MENDOZA JR UNIT: [id number] ADM DATE: 08/03/18 AGE: 87 : [birth year] SEX: M ROOM/BED: D.2234 AUTHOR: RAMYDOC PHYSICIAN: REFERRING PHYSICIAN: BRIDGETT ROTH MD DATE OF SERVICE: 08/06/18 Discharge Plan Patient Name: CHARLIE MENDOZA Facility: [facility]:[place] : 1930 Planned Disposition: Other Type of Facility Anticipated Discharge Date: Discharge Date: Expected LOS: Initial Reviewer: [email or web address] Initial Review Date: 08/05/2018 Generated: 08/06/18 1:10 pm Comments DCP- Discharge Planning Updated by [email or web address]: Jen Campbell on 08/06/18 11:[address] Received order for discharge. I asked PT to ambulate him again to check oxygen saturation. His saturation was 93 with exertion. He declines home health. He states his son will take him home today after work. He states had all DME needed at [facility] CM will continue to follow and assist with discharge planning/needs. DCP- Discharge Planning Updated by [email or web address]: Jen Campbell on 08/05/18 1:[address] Patient Name: CHARLIE MENDOZA Admission Status: ER Accout number: [id number] Admission Date: 08-03-2018 : 1930 Admission Diagnosis: Attending: CONCHITA CANO Current LOS: 2 Anticipated DC Date: Planned Disposition: Other Type of Facility Primary Insurance: MEDICARE A & B Discharge Planning Comments: CM met with patient to complete initial dc planning assessment. CM educated patient on the CM role and verbal consent given by patient to complete assessment. Patient lives at [facility] alone. At discharge patient plans to return and feels this is a safe discharge. He states the [employer] [facility] van will pick him up. He states he is independent and walks a quarter of a mile a day. States he does not use a walker, but has one available if needed and the person that picks him up is bringing a walker with them. CM discussed availability of home health, rehab services, and medical equipment. Patient denied known discharge needs at this time. He states he has catheter supplies at home. 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 He states he no longer drives, but the van takes him to his doctor appointments and anywhere he needs to go. He refuses a rehab or home health for strengthening. He CM will continue to follow and will assist as needed with dc plans/needs. Note Keeper: Jen Campbell DCPIA - Discharge Planning Initial Assessment Updated by [email or web address]: Jen Campbell on 08/05/18 2:10 pm * Is the patient Alert and Oriented? Yes * How many steps to enter\exit or inside your home? 0/0 * PCP Dr. Roth * Pharmacy [facility] [address] * Preadmission Environment Independent [facility] Apartment * Facility Name [facility] * ADLs Independent * Equipment Catheter Supplies * List name and contact numbers for known caregivers / representatives who currently or will assist patient after discharge: Saman Mendoza - justin - [phone] * Verbal permission to speak to the caregivers and representatives has been obtained from the patient. Yes * Community resources currently utilized None * Additional services required to return to the preadmission environment? No * Can the patient safely return to the preadmission environment? Yes * Has this patient been hospitalized within the prior 30 days at any hospital? 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 [address] [place] [address] END OF REPORT
== END 2018-08-06 14:03 | disposition home or self-care (01) | DRG 682 ==
LOC: D.ER 14:25 → D.EDHOLD 17:59 → D.MS 17:59
PROVIDERS: Family Medicine; Internal Medicine Nephrology; ADMIT Family Medicine; ATTEND Family Medicine
DX: N17.9 Acute kidney failure, unspecified (principal); G92 Toxic encephalopathy; N39.0 Urinary tract infection, site not specified; E87.6 Hypokalemia; E86.0 Dehydration; I12.9 Hypertensive chronic kidney disease with stage 1 through stage 4 chronic kidney disease, or unspecified chronic kidney disease; N18.9 Chronic kidney disease, unspecified; I10 Essential (primary) hypertension; I25.10 Atherosclerotic heart disease of native coronary artery without angina pectoris

== ENCOUNTER 2018-08-21 08:36 | Emergency (ER) | payer MEDICARE, OTHER ==
[~2018-08-21 08:36] MED LIST changes: +CENTRUM MEN'S1 EACH PO; +CIPRO250 MG PO
[2018-08-21 08:42] VITALS: BMI 23.9
[2018-08-21 12:28] VITALS: BP 120/77
== END 2018-08-21 12:29 | disposition home or self-care (01) ==
LOC: D.ER 08:36
DX: K59.00 Constipation, unspecified (principal)

== ENCOUNTER → 2018-08-29 17:21 | Outpatient (CLI) | payer MEDICARE, OTHER ==
[2018-08-21 08:42] VITALS: BMI 23.9
== END | disposition home or self-care (01) ==
LOC: D.LABREF 17:21
PROVIDERS: ATTEND Urology
DX: R82.5 Elevated urine levels of drugs, medicaments and biological substances (principal)

== ENCOUNTER → 2018-09-12 15:51 | Outpatient (CLI) | payer MEDICARE, OTHER ==
[2018-08-21 08:42] VITALS: BMI 23.9
== END | disposition home or self-care (01) ==
LOC: D.LABREF 15:51
PROVIDERS: ATTEND Urology
DX: D72.829 Elevated white blood cell count, unspecified (principal); R31.9 Hematuria, unspecified

== ENCOUNTER → 2019-06-26 12:42 | Outpatient (CLI) | payer MEDICARE, OTHER | END | disposition home or self-care (01) | LOC: D.US 12:42 | PROVIDERS: ATTEND Internal Medicine | DX: N18.4 Chronic kidney disease, stage 4 (severe) (principal); I10 Essential (primary) hypertension; I73.9 Peripheral vascular disease, unspecified; Z68.23 Body mass index [BMI] 23.0-23.9, adult ==